=== PATIENT | female | born 1980 | race American Indian/Alaskan Native ===

== ENCOUNTER 2018-10-02 17:34 | Inpatient (IN) | payer MEDICAID ==
[2018-10-02 18:04] LABS: Bilirubin,Urine NEG (Negative); Blood,Urine NEG (Negative); Color,Urine Straw (Yellow); Protein,Urine <15 mg/dL mg/dL (Negative); Urobilinogen,Urine < 2.0 mg/dL (<2.0)
[2018-10-02] MEDS ORDERED: LACTATED RINGERS 500 ML IV ONE (18:41)
--- NOTE | 2018-10-02 20:29 | History and Physical Report ---
History of Present Illness Date of examination: 10/02/18 Chief complaint: Anhydramnios at 16wga History of present illness: This is a 38 year-old female with intrauterine at 16 weeks gestation who presents to triage with an inevitable miscarriage. She was sent from [facility] for evaluation of severe all of the oligohydramnios. According to Dr. Lozoya's report there were lower extremities in the cervical canal. Patient is unsure whether she had any rupture of membranes. Her evaluation here at [facility] revealed parts protruding through the cervix into the vagina with no evidence of membranes present. After the findings were discussed with the patient along with recommendation for delivery and other options were discussed, she voiced understanding and desires to proceed with delivery. Past Medical History: Hypertension diet controlled Vertigo Past Surgical History: Reviewed history from 06/02/2018 and no changes required: Negative Past Surgical History Family History Summary: Other family member - Has No Family History of Uterine Cancer - Entered On: 07/20/2018 Other family member - Has No Family History of Stomach Cancer - Entered On: 07/20/2018 Other family member - Has No Family History of Spontaneous DVT-PE - Entered On: 07/20/2018 Other family member - Has No Family History of Small Bowel Cancer - Entered On: 07/20/2018 Other family member - Has No Family History of Pancreatic Cancer - Entered On: 07/20/2018 Other family member - Has No Family History of Ovarvian Cancer - Entered On: 07/20/2018 Other family member - Has No Family History of Kidney/Urinary Tract Cancer - Entered On: 07/20/2018 Other family member - Has No Family History of Colon Cancer - Entered On: 07/20/2018 Other family member - Has No Family History of Breast Cancer - Entered On: 07/20/2018 Other family member - Has No Family History of Brain Cancer - Entered On: 07/20/2018 Other family member - Has No Family History of Biliary Tract Cancer - Entered On: 07/20/2018 Social History: Reviewed history from 06/02/2018 and no changes required: Patient is Chik-Abdi-A Smoking History: Patient has never smoked. Risk Factors: Previous Tobacco Use: Signed On - 06/30/2018 Smoked Tobacco Use: Never smoker Smokeless Tobacco Use: Never Passive smoke exposure: no Drug use: no HIV high-risk behavior: no Previous Alcohol Use: Signed On - 06/30/2018 Alcohol use: no Exercise: no Seatbelt use: 100 % PAP Smear History: Date of Last PAP Smear: 06/02/2018 Past Medical History Abnormal PAP: negative Social Hx: Patient is [place] Smoking History: Patient has never smoked. Infection History Hx of STD: none Genetic History ADVANCED MATERNAL AGE Congenital Heart Defect: Mom: no Dad: no Sabrina Disease: Mom: no Dad: no Thalassemia Mom: no Dad: no Neural Tube Defect Mom: no Dad: no Down's Syndrome Mom: no Dad: no Eusebio-Sachs Mom: no Dad: no Sickle Cell Disease/Trait Mom: no Dad: no Hemophilia Mom: no Dad: no Muscular Dystrophy Mom: no Dad: no Cystic Fibrosis Mom: no Dad: no Willie Chorea Mom: no Dad: no Mental Retardation Mom: no Dad: no Fragile X Mom: no Dad: no Other Genetic/Chromosomal Disorder Mom: no Dad: no Child w/other defect Mom: no Dad: no Enviromental Exposures Enviromental Exposures Reviewed Xray Exposure: no Medication, drug, or alcohol use since LMP: no Chemical/Other Exposure: no Exposure to Cat Liter: no Hx of Parvovirus (Fifth Disease): no Occupational Exposure to Children: other Comments: Jose Juan Kaplan, she does have a 5yo in daycare Active Medications: None Current Allergies (reviewed today): No known allergies Past History - Obstetrical History Expected Date of Delivery: 03/15/19 Actual Gestation: 16 Week(s) 4 Day(s) : 3 Para: 1 Hx # Term Pregnancies: 1 Spontaneous Abortions: 1 Medications and Allergies Allergies Allergy/AdvReac Type Severity Reaction Status Date / Time Fish Containing Products AdvReac Severe Anaphylaxis Verified 10/02/18 17:39 Review of Systems All systems: negative - Vital Signs Vital signs: Vital Signs Temp Pulse Resp BP Pulse Ox 97 F L 76 20 110/67 100 10/02/18 17:47 10/02/18 17:47 10/02/18 17:47 10/02/18 17:47 10/02/18 17:47 Temp Pulse Resp BP Pulse Ox 97 F L 82 20 110/67 100 10/02/18 17:47 10/02/18 18:27 10/02/18 17:47 10/02/18 17:47 01/18/19 18:27 - Physical Exam Breasts: Positive: normal Cardiovascular: Regular rate Lungs: Positive: Normal air movement Genitourinary (Female): Positive: normal external genitalia, normal perenium Vulva: both: normal Vagina: Positive: other ( parts in vagina protruding thru the cervix, no evidence of membranes) Uterus: Positive: enlarged. Negative: tender Extremities: Positive: normal - Obstetrical FHR: other (170's by US) Results All other labs normal. Assessment and Plan - Patient Problems (1) Incomplete inevitable without complication Current Visit: Yes Status: Acute Plan to address problem: Options discussed, delivery recommended. She was informed that observation would increase her risk for lethal infection. Discussed this is not viable and will probably delivery spontaneously even without intervention at this time. However with an unsupervised delivery she could have severe bleeding that may also be fatal for her. Questions were encouraged and answered, she was given ample time to discuss options with her . She voiced understanding and de sires to proceed with delivery. (2) Hypertension Current Visit: Yes Status: Acute Qualifiers: Hypertension type: essential hypertension Qualified Code(s): I10 - Essential (primary) hypertension (3) Vertigo Current Visit: Yes Status: Acute
--- NOTE | 2018-10-02 20:49 | Ultrasound Report ---
FINAL REPORT PROCEDURE: US OB >= 14 WEEKS FETUS TECHNIQUE: Real-time transabdominal sonography of the uterus, placenta, amniotic fluid, adnexa, and fetus was performed with image documentation. Measurements were obtained to determine age/size. M-mode Doppler was used to document heartbeat. CPT 45349 HISTORY: well being COMPARISON: No prior studies are available for comparison. FINDINGS: GENERAL: IUP: Single living intrauterine . Position: Breech. legs are seen in the cervic al canal Placental position: Fundal, without previa. Amniotic fluid volume: Diminished. MATERNAL: Uterus: Lobular masses consistent with fibroids measuring 5.0 cm and 4.0 cm and 3.5 cm. Internal Os: Closed. FETUS: Heart rate and rhythm: 144 BPM, Regular. MEASUREMENTS: BPD: 3.2 cm, 16 weeks 0 days HC: 12.3 cm, 16 weeks 1 day AC: 10.3 cm, 16 weeks 2 days FL: 2.0 cm, 15 weeks 6 days Mean Gestational Age (composite criteria): 16 weeks 1 day, estimated due date March 18, 2019 Estimated Weight: 144 grams.. IMPRESSION: Single intrauterine gestation at 16 weeks 1 day. Estimated due date: March 18, 2019. There is oligohydr amnios. SARITA is less than 1 cm. legs are seen in the cervical canal. Fibroid uterus.
[2018-10-02 22:01] LABS: Basophils % (Auto) 0.2 % (0.0-1.8); Eosinophils # (Auto) 0.1 K/mm3 (0.0-0.4); Eosinophils % (Auto) 0.8 % (0.0-4.3); Hematocrit 38.1 % (30.3-42.9); Hemoglobin 12.9 gm/dl (10.1-14.3); Lymphocytes # (Auto) 2.2 K/mm3 (1.2-5.4); Lymphocytes % (Auto) 24.2 % (13.4-35.0); Mean Corpuscular HGB Conc 34 % (30-34); Mean Corpuscular Volume 90 fl (79-97); Monocytes # (Auto) 0.6 K/mm3 (0.0-0.8); Monocytes % (Auto) 6.9 % (0.0-7.3); Platelet Count 244 K/mm3 (140-440); Red Blood Count 4.22 M/mm3 (3.65-5.03); Red Cell Distribution Width 14.6 % (13.2-15.2)
[2018-10-02] MEDS ORDERED: STADOL IV PRN (22:28)
[2018-10-02] MEDS ORDERED: MINERAL OIL PO PRN (22:28)
[2018-10-02] MEDS ORDERED: ZOFRAN IV PRN (22:28)
[2018-10-02] MEDS ORDERED: PHENERGAN PR PRN (22:28)
[2018-10-02] MEDS ORDERED: NUBAIN IV PRN (22:28)
[2018-10-02] MEDS ORDERED: PHENERGAN PO PRN (22:28)
[2018-10-02] MEDS ORDERED: XYLOCAINE 2% INFILTRATI ONE (22:28)
[2018-10-02] MEDS ORDERED: SUBLIMAZE IV PRN (22:28)
[2018-10-02] MEDS ORDERED: CYTOTEC VG SCH ×2 (23:00)
[2018-10-02] MEDS ORDERED: CYTOTEC ONE (23:20)
[2018-10-02] MEDS ORDERED: TYLENOL PO PRN (23:31)
[2018-10-02] MEDS: CYTOTEC VG SCH (23:38)
[2018-10-03] MEDS: CYTOTEC VG SCH (04:00)
[2018-10-03] MEDS ORDERED: LACTATED RINGERS 1,000 ML ONE ×2 (06:06→12:19)
[2018-10-03] MEDS: PITOCin/NS 20 UNIT/1000ML DRIP 20 UNITS/1,000 ML BAG IV SCH ×2 (06:09→07:27)
--- NOTE | 2018-10-03 06:13 | Event Note ---
Date: 10/03/18 Called by charge nurse and notified that fetus has delivered, no FHTs at delivery. Placenta not delivered yet at this time. No bleeding noted at present. Dr. Pierre notified of status update who presents to bedside for assessment. Orders to start pitocin 125 ml/hr. Dr. Pierre remains at bedside.
--- NOTE | 2018-10-03 06:33 | Progress Note ---
Assessment and Plan - Patient Problems (1) Incomplete inevitable without complication Current Visit: Yes Status: Acute Plan to address problem: Delivered, stable, observe closely, ? D&C if heavy bleeding. (2) Hypertension Current Visit: Yes Status: Acute Qualifiers: Hypertension type: essential hypertension Qualified Code(s): I10 - Essential (primary) hypertension (3) Vertigo Current Visit: Yes Status: Acute Subjective - Subjective Date of service: 10/03/18 Principal diagnosis: s/p Vagianl delivery of nonviable 16wk inevitabel Ab Objective - Vital Signs Latest vital signs: Vital Signs Temp Pulse Resp BP BP Pulse Ox 10/03/18 06:21 74 103/65 98 10/03/18 06:17 82 108/73 10/03/18 06:16 71 98 10/03/18 06:12 73 110/79 10/03/18 06:11 76 99 10/03/18 06:04 71 115/68 10/03/18 06:01 78 88/54 10/03/18 05:42 82 123/73 10/03/18 05:21 76 117/66 10/03/18 05:13 99 H 103/62 10/03/18 04:42 75 100/55 10/03/18 04:12 71 129/81 10/02/18 23:40 122/62 10/02/18 18:27 82 100 10/02/18 18:22 79 100 10/02/18 18:17 78 100 10/02/18 18:12 74 100 10/02/18 18:07 86 100 10/02/18 18:02 74 100 10/02/18 17:57 76 100 10/02/18 17:52 75 100 10/02/18 17:47 97 F L 69 20 110/67 110/67 100 Intake and Output 10/02/18 10/02/18 10/03/18 14:59 22:59 06:59 Other: Weight 77.564 kg Patient Weight 10/03/18 06:59 Weight 77.564 kg - Exam Cardiovascular: Present: Regular rate Lungs: Present: Normal air movement Vulva: both: normal Uterus: Present: fundal height at umbilicus. Absent: tenderness Comments: ~100mL clots, blood from vagina with examination, placenta still in utero. Pitocin bolus given.
--- NOTE | 2018-10-03 09:12 | Event Note ---
Date: 10/03/18 placenta remains undelivered. pt c/o severe cramping. Patient requesting to be "put to sleep and have it removed." Bleeding small, no active bleeding. vaginal exam gently done, placenta is not yet ready to deliver. Dr. Lucio updated.
[2018-10-03] MEDS ORDERED: PEPCID IV ONE (10:25)
[2018-10-03] MEDS ORDERED: BICITRA PO ONE (10:25)
[2018-10-03] MEDS ORDERED: REGLAN IV ONE (10:25)
--- NOTE | 2018-10-03 10:38 | Event Note ---
Date: 10/03/18 Patient exam placenta still in utero patient unable to deliver after for Pitocin with pushing. Patient is not bleeding will perform D&C. Patient for results of the surgery include bleeding infection perforation of the uterus. Patient will probably be heavy enough that she might require blood transfusion. Patient's questions answered and she desires to proceed
[2018-10-03] MEDS ORDERED: PITOCin/NS 20 UNIT/1000ML DRIP 20 UNITS/1,000 ML BAG IV SCH (11:00)
--- NOTE | 2018-10-03 11:16 | Anesthesia Consultation ---
Anesthesia Consult and Med Hx Date of service: 10/03/18 - Airway Anesthetic Teeth Evaluation: Good ROM Head & Neck: Adequate Mental/Hyoid Distance: Adequate Mallampati Class: Class II Intubation Access Assessment: Probably Good - Pulmonary Exam CTA: Yes - Cardiac Exam Cardiac Exam: RRR - Pre-Operative Health Status ASA Pre-Surgery Classification: ASA2, Emergency Proposed Anesthetic Plan: General - Pulmonary Hx Asthma: No COPD: No Hx Pneumonia: No - Cardiovascular System Hx Hypertension: No (PIH with first child) - Central Nervous System Hx Seizures: No Hx Psychiatric Problems: No - Endocrine Hx Renal Disease: No Hx End Stage Renal Disease: No Hx Hypothyroidism: No Hx Hyperthyroidism: No - Hematic Hx Anemia: No Hx Sickle Cell Disease: No - Other Systems Hx Alcohol Use: No
--- NOTE | 2018-10-03 11:17 | Anesthesia Day of Surgery ---
Anesthesia Day of Surgery - Day of Surgery Patient Examined: Yes Patient H&P Reviewed: Yes Patient is NPO: Yes (sip of water at 0930)
[2018-10-03] MEDS ORDERED: DIPRIVAN 10 MG/ML IV ONE (11:37)
[2018-10-03] MEDS ORDERED: KETALAR ONE (11:37)
[2018-10-03] MEDS ORDERED: QUELICIN ONE (11:43)
[2018-10-03] MEDS ORDERED: VERSED ONE (11:44)
[2018-10-03] MEDS ORDERED: XYLOCAINE MPF 2% ONE (11:47)
[2018-10-03] MEDS ORDERED: ZOFRAN ONE (11:52)
[2018-10-03] MEDS ORDERED: DECADRON ONE (11:52)
[2018-10-03] MEDS ORDERED: SUBLIMAZE ONE (12:00)
[2018-10-03] MEDS ORDERED: NEO SYNEPHRINE/NS Syringe(OR USE) IV ONE (12:08)
[2018-10-03] MEDS ORDERED: METHERGINE IM ONE ×2 (12:11→13:05)
[2018-10-03] MEDS ORDERED: TORADOL ONE (12:18)
[2018-10-03] MEDS ORDERED: WATER FOR IRRIG STERILE IR ONE (12:19)
--- NOTE | 2018-10-03 12:20 | Operative Report ---
Operative Report Operative Report: Date of procedure: 10/03/2018 Pre-operative diagnosis: Retained placenta Post-operative diagnosis: Same Procedure name(s): Dilatation and curettage Surgeon: Froylan Lucio MD Older Adult Social Work Specialist: [] Anesthesia: General EBL: 75 mL Complications: None Findings: Placenta at cervical os Specimen(s): Placenta Procedure: The patient was brought operating room where general anesthesia was induced without difficulty. Patient was placed in dorsal lithotomy position prepped and draped in the usual sterile manner. Rubber catheter was used to empty her bladder. Weighted Speculum placed in the vagina. Initially they placenta was removed with ring forceps removed the vast majority of the placenta at this way. Ring forceps was placed at 12:00. A 9 mm suction catheter was initially placed through the cervical os. Several passes of the suction catheter removed the uterine contents. A gentle curettage was done with a banjo curettte. On until a gritty sensation was felt throughout the uterine cavity. Further suction with the suction curettage revealed no further products. All instruments were removed patient was hemostatic. She was awakened in the operating room and accompanied to recovery room in good condition.
[2018-10-03] MEDS ORDERED: DILAUDID IV PRN (12:28)
--- NOTE | 2018-10-03 12:30 | Post Anesthesia Evaluation ---
- Post Anesthesia Evaluation Patient Participated: Yes Airway Patent: Yes Stable Respiratory Function: Yes Nausea/Vomiting: No Temp > 96.8F: Yes Pain Manageable: Yes Adequeate Hydration: Yes Anesthesia Complications: No Block Receding Appropriately: Not Applicable Patient on Ventilator: No
[2018-10-03] MEDS ORDERED: TUCKS PAD TP PRN (14:15)
[2018-10-03] MEDS ORDERED: NARCAN 0.4 MG/1 ML IV PRN (14:15)
[2018-10-03] MEDS ORDERED: SODIUM CHLORIDE FLUSH SYRINGE 10 ML IV NR (14:15)
[2018-10-03] MEDS: IBUPROFEN PO PRN ×2 (14:30→23:09)
[2018-10-03] MEDS: NORCO 5/325 PO PRN (18:33)
[2018-10-03] MEDS ORDERED: CYTOTEC VG SCH (23:00)
[2018-10-03] MEDS: VIBRAMYCIN PO SCH (23:09)
[2018-10-04 04:02] LABS: Hematocrit 30.3 % (30.3-42.9); Hemoglobin 10.2 gm/dl (10.1-14.3)
[2018-10-04] MEDS: IBUPROFEN PO PRN (05:43)
[2018-10-04] MEDS: NORCO 5/325 PO PRN (07:16)
[2018-10-04] MEDS ORDERED: FEOSOL PO SCH (10:00)
[2018-10-04] MEDS: VIBRAMYCIN PO SCH ×2 (10:04→23:00)
--- NOTE | 2018-10-04 12:19 | Event Note ---
Date: 10/04/18 Patient sleeping in bed. FOC requesting to let her rest at this time, states she is "fine right now". Will attempt to round on her again later.
--- NOTE | 2018-10-04 14:18 | Discharge Summary ---
Addendum entered and electronically signed by CHARLES DARBY CNM 10/06/18 08:51: Original Note: <CHARLES DARBY - Last Filed: 10/04/18 15:25> Providers - Providers Date of Admission: 10/02/18 22:16 Date of discharge: 10/04/18 Attending physician: BRANDEN HYDE Primary care physician: BRANDEN HYDE Hospitalization Reason for admission: Inevitable miscarriage, anhydramnios Condition: Good Pertinent studies: postdelivery H&H 10.2/30.3 Procedures: , D&C Hospital course: complicated by D&C for retained placenta Disposition: TO HOME OR SELFCARE Core Measure Documentation - Palliative Care Palliative Care/ Comfort Measures: Not Applicable - Core Measures Any of the following diagnoses?: none Exam - Constitutional Vitals: Temp Pulse Resp BP Pulse Ox 98.0 F 77 18 93/59 100 10/04/18 11:17 10/04/18 11:17 10/04/18 11:17 10/04/18 11:17 10/04/18 11:17 General appearance: Present: no acute distress, well-nourished - EENT Eyes: Present: PERRL ENT: hearing intact, clear oral mucosa - Neck Neck: Present: supple, normal ROM - Respiratory Respiratory effort: normal Respiratory: bilateral: CTA - Cardiovascular Rhythm: regular Heart Sounds: Present: S1 & S2. Absent: rub, click - Extremities Extremities: pulses symmetrical, No edema Peripheral Pulses: within normal limits - Abdominal General gastrointestinal: Present: soft, non-tender, non-distended, normal bowel sounds Female genitourinary: Present: normal - Integumentary Integumentary: Present: clear, warm, dry - Musculoskeletal Musculoskeletal: gait normal, strength equal bilaterally - Psychiatric Psychiatric: appropriate mood/affect, intact judgment & insight - Neurologic Neurologic: CNII-XII intact, moves all extremities - Additional findings Additional findings: Fundus is firm. Bleeding is scant. Patient reports feeling slightly dizzy while standing. VSSAF. Instructed to rise slowly and rest often, especially when feeling dizzy. Increase water intake. Denies any pain. Reviewed patient status with Dr. Hyde, order for H&H entered. Will reassess discharge order after results available and reassessment of patient. Plan Activity: no restrictions Diet: regular Follow up with: BRANDEN HYDE MD [Primary Care Provider] - 7 Days (Call [phone] to schedule your postoperative visit in one week. Nothing in the vagina for at least 4 weeks. Call with any concerns.) Prescriptions: Doxycycline [Vibramycin CAP] 100 mg PO Q12HR #14 capsule Ferrous Sulfate [Feosol 325 MG tab] 325 mg PO BID #60 tablet Ibuprofen [Motrin 800 MG tab] 800 mg PO Q6H PRN #30 tablet PRN Reason: Pain <JOSELYN JAMA - Last Filed: 10/05/18 06:00> Providers - Providers Date of Admission: 10/02/18 22:16 Attending physician: BRANDEN HYDE Primary care physician: BRANDEN HYDE Core Measure Documentation - VTE Discharge Requirements Deep Vein Thrombosis/Pulmonary Embolism Present on Admission: No Has pt received <5 days of overlap therapy or INR<2.0: No Anticoagulant overlap therapy prescribed at discharge: No Contraindication No Overlap Therapy order at DC: Not Indicated - Acute [place] Discharge Requirements Aspirin at discharge: No Reason for no aspirin on DC: Medical contraindication GERALD/ARB for LVSD if EF <40%: Not Applicable Reason for no GERALD/ARB: Medical contraindication Beta jess at discharge: No Reason for no beta jess on DC: Medical contraindication Statin for LDL = or >100 mg/dl on DC: Not Applicable Reason for no statin on DC: Medical contraindication - Heart Failure Discharge Requirements GERALD/ARB for LVSD if EF <40%: Not Applicable Reason for no GERALD/ARB: Medical contraindication Beta jess at discharge: No Reason for no beta jess on DC: Medical contraindication - Stroke Discharge Requirements Statin for LDL = or >70 mg/dl on DC: Not Applicable Reason for no statin on DC: Not Indicated Anticoag for atrial fib/atrial flutter: Not Applicable Reason for no anticoag for AF/F on DC: Not Indicated Antithrombotic for ischemic stroke: No Reason for no antithrombotic on DC: Not Indicated Exam - Constitutional Vitals: Temp Pulse Resp BP Pulse Ox 98.3 F 77 18 99/66 97 10/05/18 00:13 10/05/18 00:13 10/05/18 00:13 10/05/18 00:13 10/05/18 00:13 Plan Weight Bearing Status: Weight Bear as Tolerated Special Instructions: no heavy lifting
[2018-10-04] MEDS: ZOFRAN IV PRN ×2 (14:35→22:43)
--- NOTE | 2018-10-04 15:33 | Procedure Note ---
Addendum entered and electronically signed by CHARLES DARBY CNM 10/04/18 15:57: Late Entry: Original Note: OB Delivery Note - Delivery Date of Delivery: 10/03/18 Dollyman: CHARLES DARBY (called to room after delivery of fetus) Estimated blood loss: 100cc - Vaginal Delivery presentation: breech (delphine) Intrapartum events: hydramnios (anhydramnios) Delivery monitor: external uterine Route of delivery: Delivery placenta: other (retained. Delivered by D&C ) Episiotomy: none Delivery laceration: none Delivery comments: Late entry: Called to bedside by charge nurse after delivery of fetus. Placenta remains in place. No active bleeding noted. Gentle traction of the umbilical cord does not deliver placenta. Patient comfortable. VSSAF. Dr. Pierre called to update on patient stated. presents to bedside to assess placenta. - Infant A Gender: Ambiguous (no heart tones noted at delivery. 128 grams)
[2018-10-04 19:18] LABS: Hematocrit 29.7 % (30.3-42.9); Hemoglobin 9.8 gm/dl (10.1-14.3)
[2018-10-04] MEDS: D5LR 1,000 ML IV SCH (20:07)
[2018-10-04] MEDS ORDERED: PHENERGAN PR PRN (20:55)
[2018-10-05] MEDS: D5LR 1,000 ML IV SCH (02:53)
[2018-10-05] MEDS ORDERED: PHENERGAN PO PRN (11:00)
[2018-10-05 11:32] VITALS: BP 104/65
== END 2018-10-05 12:10 | disposition home or self-care (01) | DRG 770 ==
LOC: TRG 17:34 → LD 22:16 → TRG 22:16 → OB 10-03 14:13
PROVIDERS: ADMIT Obstetrics & Gynecology; ATTEND Obstetrics & Gynecology
PROC: 10D17ZZ Extraction of Products of Conception, Retained, Via Natural or Artificial Opening (ICD-10-PCS; principal; 2018-10-03)
DX: O03.4 Incomplete spontaneous abortion without complication (principal); O10.912 Unspecified pre-existing hypertension complicating pregnancy, second trimester; R42 Dizziness and giddiness; O41.02X0 Oligohydramnios, second trimester, not applicable or unspecified; Z3A.16 16 weeks gestation of pregnancy
CPT/HCPCS: 36415; 76805; 81001; 85014; 85018; 85025; 86850; 86900; 86901; 88305; G0378; J0330; J0595; J1100; J1885; J2210; J2250; J2370; J2405; J2590; J2704; J2765; J3010; J7120; J7121; Q0169

== ENCOUNTER 2018-10-21 15:04 | Emergency (ER) | payer MEDICAID ==
[2018-10-21 16:09] VITALS: BP 138/93
--- NOTE | 2018-10-21 16:11 | Emergency Department Report ---
Blank Doc - Documentation Documentation: 38 y o female presents to ED s/p recent spontaneous miscarraige on 10/03/18 at 16 weeks gestation here today cc of feeling weak and dizzy. still ahving vaginal bleeding, nausea labs ordered U/S ua/upt
[2018-10-21 16:32] LABS: Basophils % (Auto) 0.5 % (0.0-1.8); Eosinophils # (Auto) 0.1 K/mm3 (0.0-0.4); Eosinophils % (Auto) 2.3 % (0.0-4.3); Lymphocytes # (Auto) 2.2 K/mm3 (1.2-5.4); Lymphocytes % (Auto) 43.1 % (13.4-35.0); Mean Corpuscular HGB Conc 33 % (30-34); Mean Corpuscular Volume 94 fl (79-97); Monocytes # (Auto) 0.4 K/mm3 (0.0-0.8); Monocytes % (Auto) 7.8 % (0.0-7.3); Platelet Count 299 K/mm3 (140-440); Red Blood Count 4.17 M/mm3 (3.65-5.03); Red Cell Distribution Width 15.7 % (13.2-15.2)
[2018-10-21] MEDS ORDERED: NORCO 5/325 PO ONE (16:41)
--- NOTE | 2018-10-21 16:41 | Emergency Department Report ---
ED General Adult HPI - General Chief complaint: High BP Stated complaint: WEAKNESS/DIZZY Time Seen by Provider: 10/21/18 16:05 Source: patient Mode of arrival: Ambulatory Limitations: No Limitations - History of Present Illness Initial comments: Patient is a 38-year-old female who is here for multiple complaints. Complaining about was the patient had a miscarriage at the end of September approximately 2 weeks ago and his continued to have vaginal bleeding. With further questioning patient states she only sees blood when she urinates which leads to me to believe that this may be hematuria. Patient states she does have a pressure-like sensation in the suprapubic region and the patient does have some urinary frequency and urgency. Patient denies fevers chills but does have some nausea and vomiting occasionally. Second complaint is that the patient has a history of high blood pressure was not taking meds and is complaining of some dizziness and mild headache. Patient states that her blood pressure before arrival was 160/104. Patient has not been on meds and quite some time. Patient denies chest pain focal neurological deficit or decreased urination. - Related Data Home Medications Medication Instructions Recorded Confirmed Last Taken Pnv No.95/Ferrous Fum/Folic AC 1 tab PO DAILY 10/03/18 10/03/18 10/01/18 10:00 [ Formula Tablet] Previous Rx's Medication Instructions Recorded Last Taken Type Doxycycline [Vibramycin CAP] 100 mg PO Q12HR #14 capsule 10/03/18 Unknown Rx Ferrous Sulfate [Feosol 325 MG tab] 325 mg PO BID #60 tablet 10/03/18 Unknown Rx Ibuprofen [Motrin 800 MG tab] 800 mg PO Q6H PRN #30 tablet 10/03/18 Unknown Rx Amlodipine Besylate [Norvasc] 5 mg PO DAILY #30 tablet 10/21/18 Unknown Rx Ibuprofen [Motrin] 600 mg PO Q8H PRN #20 tablet 10/21/18 Unknown Rx Meclizine [Antivert] 25 mg PO TID PRN #12 tablet 10/21/18 Unknown Rx Nitrofurantoin Monohyd/M-Cryst 100 mg PO BID #14 capsule 10/21/18 Unknown Rx [Macrobid 100 mg Capsule] Allergies Allergy/AdvReac Type Severity Reaction Status Date / Time No Known Allergies Allergy Unverified 10/21/18 16:08 ED Review of Systems ROS: Stated complaint: WEAKNESS/DIZZY Other details as noted in HPI Comment: All other systems reviewed and negative ED Past Medical Hx - Past Medical History Hx Hypertension: No (PIH with first child) Hx Congestive Heart Failure: No Hx Diabetes: No Hx Deep Vein Thrombosis: No Hx Renal Disease: No Hx Sickle Cell Disease: No Hx Seizures: No Hx Asthma: No Hx COPD: No Hx HIV: No - Social History Smoking Status: Never Smoker Substance Use Type: None - Medications Home Medications: Home Medications Medication Instructions Recorded Confirmed Last Taken Type Doxycycline [Vibramycin CAP] 100 mg PO Q12HR #14 capsule 10/03/18 Unknown Rx Ferrous Sulfate [Feosol 325 MG tab] 325 mg PO BID #60 tablet 10/03/18 Unknown Rx Ibuprofen [Motrin 800 MG tab] 800 mg PO Q6H PRN #30 tablet 10/03/18 Unknown Rx Pnv No.95/Ferrous Fum/Folic AC 1 tab PO DAILY 10/03/18 10/03/18 10/01/18 10:00 History [ Formula Tablet] Amlodipine Besylate [Norvasc] 5 mg PO DAILY #30 tablet 10/21/18 Unknown Rx Ibuprofen [Motrin] 600 mg PO Q8H PRN #20 tablet 10/21/18 Unknown Rx Meclizine [Antivert] 25 mg PO TID PRN #12 tablet 10/21/18 Unknown Rx Nitrofurantoin Monohyd/M-Cryst 100 mg PO BID #14 capsule 10/21/18 Unknown Rx [Macrobid 100 mg Capsule] ED Physical Exam - General Limitations: No Limitations General appearance: alert, in no apparent distress - Head Head exam: Present: atraumatic, normocephalic - Eye Eye exam: Present: normal appearance - ENT ENT exam: Present: normal exam, normal orophraynx, mucous membranes moist - Neck Neck exam: Present: normal inspection - Respiratory Respiratory exam: Present: normal lung sounds bilaterally. Absent: respiratory distress, wheezes, rales, rhonchi, stridor, chest wall tenderness - Cardiovascular Cardiovascular Exam: Present: regular rate, normal rhythm. Absent: systolic murmur, diastolic murmur, rubs, gallop - GI/Abdominal GI/Abdominal exam: Present: soft, tenderness (tenderness), normal bowel sounds. Absent: distended, guarding, rebound, rigid - Extremities Exam Extremities exam: Present: normal inspection - Back Exam Back exam: Present: normal inspection - Neurological Exam Neurological exam: Present: alert, oriented X3 - Psychiatric Psychiatric exam: Present: normal affect, normal mood - Skin Skin exam: Present: warm, dry, intact, normal color. Absent: rash ED Course Vital Signs 10/21/18 10/21/18 16:05 16:09 Temperature 97.9 F Pulse Rate 79 Respiratory 16 Rate Blood Pressure 129/87 Blood Pressure 138/93 [Left] ED Medical Decision Making - Lab Data Result diagrams: 10/21/18 16:19 10/21/18 16:19 Lab Results 10/21/18 10/21/18 10/21/18 Range/Units 16:19 16:19 Unknown WBC 5.0 (4.5-11.0) K/mm3 RBC 4.17 (3.65-5.03) M/mm3 Hgb 13.0 (10.1-14.3) gm/dl Hct 39.0 (30.3-42.9) % MCV 94 (79-97) fl MCH 31 (28-32) pg MCHC 33 (30-34) % RDW 15.7 H (13.2-15.2) % Plt Count 299 (140-440) K/mm3 Lymph % (Auto) 43.1 H (13.4-35.0) % [place] % (Auto) 7.8 H (0.0-7.3) % Eos % (Auto) 2.3 (0.0-4.3) % Baso % (Auto) 0.5 (0.0-1.8) % Lymph # 2.2 (1.2-5.4) K/mm3 [place] # 0.4 (0.0-0.8) K/mm3 Eos # 0.1 (0.0-0.4) K/mm3 Baso # 0.0 (0.0-0.1) K/mm3 Seg Neutrophils % 46.3 (40.0-70.0) % Seg Neutrophils # 2.3 (1.8-7.7) K/mm3 Sodium 137 (137-145) mmol/L Potassium 3.6 (3.6-5.0) mmol/L Chloride 100.3 (98-107) mmol/L Carbon Dioxide 27 (22-30) mmol/L Anion Gap 13 mmol/L BUN 8 (7-17) mg/dL Creatinine 0.7 (0.7-1.2) mg/dL Estimated GFR > 60 ml/min BUN/Creatinine Ratio 11 % Glucose 101 H (65-100) mg/dL Calcium 8.8 (8.4-10.2) mg/dL Urine Color Yellow (Yellow) Urine Turbidity Clear (Clear) Urine pH 5.0 (5.0-7.0) Ur Specific [place] 1.017 (1.003-1.030) Urine Protein <15 mg/dl (Negative) mg/dL Urine Glucose (UA) Neg (Negative) mg/dL Urine Ketones Neg (Negative) mg/dL Urine Blood Lg (Negative) Urine Nitrite Neg (Negative) Urine Bilirubin Neg (Negative) Urine Urobilinogen < 2.0 (<2.0) mg/dL Ur Leukocyte Esterase Mod (Negative) Urine WBC (Auto) 7.0 H (0.0-6.0) /HPF Urine RBC (Auto) 31.0 (0.0-6.0) /HPF U Epithel Cells (Auto) 2.0 (0-13.0) /HPF Urine Bacteria (Auto) 1+ (Negative) /HPF Urine Mucus Few /HPF - Medical Decision Making Patient is a 38-year-old female who is presenting with some headache and dizziness. Patient does show to have a UTI on her urinalysis. Patient also has a history of some elevated blood pressures lately. The patient be started on Norvasc 5 also be started on Macrobid for her UTI be discharged home. Critical care attestation.: If time is entered above; I have spent that time in minutes in the direct care of this critically ill patient, excluding procedure time. ED Disposition Clinical Impression: Hypertensive urgency UTI (urinary tract infection) Qualifiers: Urinary tract infection type: acute cystitis Hematuria presence: with hematuria Qualified Code(s): N30.01 - Acute cystitis with hematuria Disposition: TO HOME OR SELFCARE Is pt being admited?: No Does the pt Need Aspirin: No Condition: Stable Instructions: Hypertension (ED), Urinary Tract Infection in Women (ED) Referrals: SALONI SULLIVAN MD [Primary Care Provider] - 3-5 Days Time of Disposition: 17:00
[2018-10-21 16:48] LABS: Bacteria,Urine 1+ /HPF (Negative); Bilirubin,Urine NEG (Negative); Blood,Urine LG (Negative); Color,Urine Yellow (Yellow); Mucus,Urine FEW /HPF; Protein,Urine <15 mg/dL mg/dL (Negative); Urobilinogen,Urine < 2.0 mg/dL (<2.0)
[2018-10-21 16:52] LABS: BUN/Creatinine Ratio 11; Blood Urea Nitrogen 8 mg/dL (7-17); Calcium 8.8 mg/dL (8.4-10.2); Hemolysis Index 47
== END 2018-10-21 17:33 | disposition home or self-care (01) ==
LOC: ED 15:04
DX: I16.0 Hypertensive urgency (principal); N30.01 Acute cystitis with hematuria
CPT/HCPCS: 36415; 80048; 81001; 85025; 99283